=== PATIENT | male | born 1965 | race Caucasian/White ===

== ENCOUNTER → 2020-11-29 17:14 | Outpatient (CLI) | payer BC, SELFPAY ==
--- NOTE | 2020-11-29 | XR_ITS ---
PROCEDURE: XR CHEST 2V CLINICAL HISTORY: COMPARISON: No exams were available for comparison FINDINGS: The cardiomediastinal silhouette and pulmonary vascularity are within normal limits. The lungs are clear without infiltrates, suspicious nodules, or pleural effusions. There is a calcified granuloma right upper lobe and there can't calcified right paratracheal nodes. No acute bony abnormalities. IMPRESSION: Old granulomatous disease no acute chest pathology noted Dictated by: Dr. Vamshi Oden MD 11/30/2020 13:09 Dr. Vamshi Oden MD in [place] 11/30/2020 13:09
== END ==
PROVIDERS: PCP Internal Medicine; Visit Provider Internal Medicine
DX: R06.02 Shortness of breath (principal); R05 Cough
CPT/HCPCS: 71046